=== PATIENT | female | born 1985 | race Caucasian/White ===

== ENCOUNTER 2020-05-28 06:19 | Inpatient (IN) ==
[2020-05-28] MEDS ORDERED: NUBAIN INJ 200 MG VIAL MULTIDOSE IVP PRN (06:32)
[2020-05-28] MEDS ORDERED: PHENERGAN INJ 25 MG IM PRN ×2 (06:32→17:04)
[2020-05-28] MEDS ORDERED: REGLAN INJ 10 MG VIAL IVP PRN (06:32)
[2020-05-28] MEDS ORDERED: MORPHINE SULFATE INJ 2 MG INJ IVP PRN (06:32)
[2020-05-28] MEDS ORDERED: D5LR 1L W PITOCIN 10 UNITS/L 10 UNITS/1,000 ML BAG IV PRN (06:32)
[2020-05-28] MEDS ORDERED: PITOCIN IVP ONE (06:32)
[2020-05-28] MEDS ORDERED: AMPICILLIN VIAL 2 GRAM 2 G in NS 100 ML IV + SPIKE MINIBAG* 100 ML IV SCH (06:32)
[2020-05-28] MEDS ORDERED: D5 1/2 NS 1000 ML 1,000 ML IV SCH (06:32)
[2020-05-28] MEDS ORDERED: BETADINE SOLN ONE (06:37)
[2020-05-28] MEDS ORDERED: D5 1/2 NS 1L W PITOCIN 20 UNITS/L 20 UNITS/1,000 ML BAG IV ONE (06:39)
[2020-05-28] MEDS ORDERED: ANCEF 1 GRAM IV PREMIX* 1 G/50 ML BAG IV ONE ×3 (06:40→16:30)
[2020-05-28] MEDS ORDERED: ANCEF VIAL 1 GRAM IVP ONE (07:00)
--- NOTE | 2020-05-28 07:03 | DR.OB ---
OB Quick Note - Assessment/Plan Assessment/Plan: L&D 05/28/20 at 6:55am S-No complaint. O-Afebrile,VSS JPD=046 with good LTV, +accel, no decel. CTX=occasional,mild CVX=1cm/50%/-1/VTX AROM with clear fluid. IUPC and FSE placed. A-IUP at 39 0/7 weeks for induction +GBS P-Begin pitocin induction IV ABX in labor Anticipate
[2020-05-28] MEDS ORDERED: STADOL INJ IVP PRN (07:20)
[2020-05-28] MEDS: VSL#3 PO SCH ×2 (07:22→14:44)
[2020-05-28] MEDS ORDERED: AMPICILLIN VIAL 1 GRAM 1 G in NS 50 ML IV + SPIKE MINIBAG* 50 ML IV SCH (10:00)
--- NOTE | 2020-05-28 12:08 | DR.OB ---
OB Quick Note - Assessment/Plan Assessment/Plan: L&D 05/28/20 at 12:05pm Pitocin=14mu/min. Ancef S-No complaint except CTX. O-Afebrile,VSS BCT=374 with good LTV, +accel, no decel. CTX=q 1 1/2 to 2 1/2 min., about 45-55mmHg CVX=3cm/50%/0 A-IUP at 39 0/7 weeks for induction +GBS P-Cont. pitocin induction Cont. ABX in labor Anticipate
[2020-05-28] MEDS ORDERED: FENTANYL INJ 100 mcg ONE ×2 (12:43→16:46)
[2020-05-28] MEDS ORDERED: LR 1000 ML IV 1,000 ML IV ONE (12:43)
[2020-05-28] MEDS ORDERED: FENTANYL 2 mcg/mL-ROPIV 0.1%-NS EPIDURAL 200 ML EPI ONE (12:44)
[2020-05-28] MEDS ORDERED: ANCEF VIAL 1 GRAM IVP SCH (14:00)
[2020-05-28] MEDS ORDERED: MARCAINE 0.25% INJ ONE (16:30)
[2020-05-28] MEDS: D5 1/2 NS 1000 ML 1,000 ML with PITOCIN 20 UNITS IV SCH ×2 (16:55)
--- NOTE | 2020-05-28 17:03 | DR.OB ---
OB Quick Note - Assessment/Plan Assessment/Plan: Delivery Note 05/28/20 at 5:00pm Patient complete and pushing. Head delivered over intact perineum. No nuchal cord. Nose and mouth bulb suctioned. Body delivered over intact perineum. Cord clamped x 2 and cut. Infant handed to attendant. Cord sent for gases. Placenta delivered spontaneously / intact / 3 vessel cord. No CVX / vaginal / perineal tears. Viable female , VTX/OA, wt=6'14" and 8/9, stable to NBN. Mother stable to RR. UHT=107oh.
[2020-05-28] MEDS ORDERED: ADACEL or BOOSTRIX TDaP VACCINE IM ONE (17:40)
[2020-05-28] MEDS ORDERED: AMBIEN PO PRN (17:40)
[2020-05-28] MEDS ORDERED: MILK OF MAGNESIA PO PRN (17:40)
[2020-05-28] MEDS ORDERED: DERMOPLAST PAIN RELIEF SPRAY TOP PRN (17:40)
[2020-05-28] MEDS: MOTRIN TAB 800 MG PO PRN (18:21)
[2020-05-29] MEDS: D5 1/2 NS 1000 ML 1,000 ML with PITOCIN 20 UNITS IV SCH ×2 (02:20)
[2020-05-29] MEDS ORDERED: FERROUS GLUCONATE PO ONE (05:05)
[2020-05-29 05:21] LABS: HEMATOCRIT 34.4 % (36.0-47.0); HEMOGLOBIN 11.7 g/dL (12.0-16.0)
[2020-05-29] MEDS: FERROUS GLUCONATE PO SCH ×2 (06:00→16:55)
[2020-05-29] MEDS ORDERED: PROTONIX TAB 40 MG PO ONE (07:43)
[2020-05-29] MEDS ORDERED: PRENATAL PLUS PO ONE (07:43)
[2020-05-29] MEDS: MOTRIN TAB 800 MG PO PRN ×2 (08:15→17:50)
[2020-05-29] MEDS: VSL#3 PO SCH (08:19)
[2020-05-29] MEDS ORDERED: PROTONIX TAB 40 MG PO SCH (09:00)
[2020-05-29] MEDS ORDERED: PRENATAL PLUS PO SCH (09:00)
[2020-05-29 17:05] VITALS: BP 130/76
== END 2020-05-29 17:50 | disposition home or self-care (01) | DRG 833 ==
LOC: LD 06:19 → MED/SURG 17:52
PROVIDERS: ADMIT Specialist; ATTEND Specialist
DX: Z37.0 Single live birth; R87.619 Unspecified abnormal cytological findings in specimens from cervix uteri; Z3A.39 39 weeks gestation of pregnancy; O99.013 Anemia complicating pregnancy, third trimester; O99.820 Streptococcus B carrier state complicating pregnancy; D50.8 Other iron deficiency anemias; B95.1 Streptococcus, group B, as the cause of diseases classified elsewhere; O99.613 Diseases of the digestive system complicating pregnancy, third trimester